=== PATIENT | female | born 1950 | race Caucasian/White ===

== ENCOUNTER 2023-02-25 08:36 | Day surgery (SDC) | payer MEDICARE ==
[2023-02-25] MEDS ORDERED: Lactated Ringers 1,000 ML IV SCH (09:30)
[2023-02-25] MEDS ORDERED: Propofol 200 MG/20 ML SDV ONE (09:41)
[2023-02-25] MEDS ORDERED: fentaNYL 50 MCG/ML SDV ONE (09:41)
== END 2023-02-25 12:00 | disposition home or self-care (01) ==
LOC: JP.SDS 08:36
PROVIDERS: ATTEND Student in an Organized Health Care Education/Training Program
DX: Z12.11 Encounter for screening for malignant neoplasm of colon (principal); K63.5 Polyp of colon; K57.30 Diverticulosis of large intestine without perforation or abscess without bleeding
CPT/HCPCS: J2704; J3010; J7120